=== PATIENT | female | born 1950 | race Caucasian/White ===

== ENCOUNTER 2017-06-18 22:19 | Emergency (ER) | payer MEDICARE, OTHER ==
[~2017-06-18] VITALS: Ht 165.1 cm; Wt 106.6 kg
[2017-06-18 22:54] VITALS: BP 147/83; PULSE 93; RESP 14; TEMP 98.1; O2SAT 96
[2017-06-19 00:05] VITALS: BP 131/63; PULSE 96; RESP 20; O2SAT 99
[2017-06-19] MEDS ORDERED: BUPR150CR PO (00:14)
[2017-06-19] MEDS ORDERED: SITA1TAB2 PO (00:14)
[2017-06-19] MEDS ORDERED: DEXI60CA3 PO (00:14)
[2017-06-19] MEDS ORDERED: METF1000 PO (00:14)
[2017-06-19] MEDS ORDERED: FOLI800T PO (00:14)
[2017-06-19] MEDS ORDERED: ONDANSETRON ODT 4 MG TAB PO ONE (00:30)
[2017-06-19 01:05] VITALS: BP 144/73; PULSE 86; RESP 20; O2SAT 99
--- NOTE | 2017-06-19 01:08 | RADRPT ---
EXAM DATE/TIME: 06/19/2017 00:41 [place] COMPARISON: No previous studies available for comparison. INDICATIONS : Right lower quadrant pain. Evaluate for calculi. ORAL CONTRAST: No oral contrast ingested. RADIATION DOSE: 19.15 CTDIvol (mGy) MEDICAL HISTORY : None SURGICAL HISTORY : Inguinal hernia repair. ENCOUNTER: Initial ACUITY: 1 day PAIN SCALE: 9/10 LOCATION: Right lower quadrant TECHNIQUE: Volumetric scanning of the abdomen and pelvis was performed. Using automated exposure control and ad justment of the mA and/or kV according to patient size, radiation dose was kept as low as reasonably achievable to obtain optimal diagnostic quality images. DICOM format image data is available electro nically for review and comparison. FINDINGS: Right side: No evidence of hydronephrosis. Extrarenal pelvis in the right ureter is mildly dilated down to the u reterovesical junction where there is a 5 mm stone stopped and there is also a nonobstructing [address] one lower pole collecting system. Left side: No calcified stones. No hydronephrosis. The left ureter is normal dimension. Bladder: Smooth margins. No intraluminal calcifications. Other: No calcified gallstones. No dilated loops of small large bowel. No evidence of free fluid. CONCLUSION: 5 mm obstructing stone at the right ureterovesical junction with mild dilation of the right extrarena l pelvis and ureter. There is one additional 5 mm nonobstructing stone lower pole right kidney. Renato Valiente MD on June 19, 2017 at 1:03 Board Certified Radiologist. This report was verified electronically.
--- NOTE | 2017-06-19 01:36 | PD ---
HPI Chief Complaint: Abdominal Pain Time Seen by Provider: 00:29 Travel History International Travel<30 days: No Contact w/Intl Traveler<30days: No Traveled to known affect area: No History of Present Illness HPI Patient came in complaining of right lower quadrant pain, intensity of 8 out of 10, intermittent, radiating up-and-down her right flank, patient currently denies any evidence of hematuria. PFSH Past Medical History Patient Takes Glucophage: Yes Inguinal Hernia: Yes Kidney Stones: Yes Influenza Vaccination: No ?: Not LMP: MENAPAUSAL Past Surgical History Abdominal Surgery: Yes (Hernia) Social History Alcohol Use: No Tobacco Use: No Substance Use: No Allergies-Medications (Allergen,Severity, Reaction): Coded Allergies: Sulfa (Sulfonamide Antibiotics) (Verified Allergy, Severe, RASH, 06/19/17) lactulose (Verified Allergy, Severe, Cramping, 06/19/17) Reported Meds & Prescriptions Reported Meds & Active Scripts Active Reported Folic Acid 0.8 Mg Tab 1 Mg PO DAILY Dexilant (Dexlansoprazole) 60 Mg bp 60 Mg PO DAILY Metformin (Metformin HCl) 1,000 Mg Tab 1,000 Mg PO BIDPC Januvia (Sitagliptin Phosphate) 100 Mg Tab 100 Mg PO DAILY Wellbutrin SR 12 HR (Bupropion HCl) 150 Mg Tab 150 Mg PO Q12HR Review of Systems Except as stated in HPI: all other systems reviewed are Neg General / Constitutional: No: Fever Eyes: No: Visual changes HENT: No: Headaches Cardiovascular: No: Chest Pain or Discomfort Respiratory: No: Shortness of Breath Gastrointestinal: No: Abdominal Pain Genitourinary: Positive: Flank Pain Musculoskeletal: No: Pain Skin: No Rash Neurologic: No: Weakness Psychiatric: No: Depression Endocrine: No: Polydipsia Hematologic/Lymphatic: No: Easy Bruising Physical Exam Narrative GENERAL: SKIN: Warm and dry. HEAD: Atraumatic. Normocephalic. EYES: Pupils equal and round. No scleral icterus. No injection or drainage. ENT: No nasal bleeding or discharge. Mucous membranes pink and moist. NECK: Trachea midline. No JVD. CARDIOVASCULAR: Regular rate and rhythm. RESPIRATORY: No accessory muscle use. Clear to auscultation. Breath sounds equal bilaterally. GASTROINTESTINAL: Abdomen soft, non-tender, nondistended. MUSCULOSKELETAL: Extremities without clubbing, cyanosis, or edema. No obvious deformities. NEUROLOGICAL: Awake and alert. No obvious cranial nerve deficits. Motor grossly within normal limits. Five out of 5 muscle strength in the arms and legs. Normal speech. PSYCHIATRIC: Appropriate mood and affect; insight and judgment normal. Data Data Last Documented VS Vital Signs Date Time Temp Pulse Resp B/P (MAP) Pulse Ox O2 Delivery O2 Flow Rate FiO2 06/19/17 00:05 96 20 131/63 (85) 99 06/18/17 22:[address] Abd/Pel W/O Iv Contrast (06/19/17 00:29) Ondansetron Odt (Zofran Odt) (06/19/17 00:30) Urinalysis - C+S If Indicated (06/19/17 01:36) Labs Laboratory Tests Test 06/19/17 01:40 [facility] Medical Decision Making Medical Screen Exam Complete: Yes Emergency Medical Condition: Yes Medical Record Reviewed: Yes Differential Diagnosis Appendectomy versus kidney stones V PYELO versus UTI Diagnosis Primary Impression: Ureterolithiasis Patient Instructions: General Instructions, Kidney Stones (ED) Scripts Ondansetron Odt (Zofran Odt) 4 Mg Tab 4 MG SL Q6HR Y for Nausea/Vomiting, #15 TAB 0 Refills Prov: Winston Gonsales MD 06/19/17 Ketorolac (Ketorolac) 10 Mg Tab 10 MG PO Q6HR Y for PAIN, #15 TAB 0 Refills Prov: Winston Gonsales MD 06/19/17 Hydrocodone-Acetaminophen ([place]) 5 Mg-325 Mg Tab 1 TAB PO Q4H Y for PAIN, #14 TAB 0 Refills Prov: Winston Gonsales MD 06/19/17 Tamsulosin (Flomax) 0.4 Mg Cap 0.4 MG PO DAILY for Manage Prostate Problems, #5 CAP 0 Refills Prov: Winston Gonsales MD 06/19/17 Disposition: 01 DISCHARGE HOME Condition: Stable Winston Gonsales MD Jun 19, 2017 01:36
[2017-06-19 01:55] LABS: BILIRUBIN, URINE NEG (NEG); BLOOD, URINE LARGE (NEG); GLUCOSE,URINE NEG (NEG); KETONE, URINE NEG (NEG); NITRITE,URINE NEG (NEG); PH, URINE 5.5 (5.0-8.5); URINE LEUKOCYTE ESTERASE NEG (NEG)
[2017-06-19] MEDS ORDERED: KETO10 PO (02:00)
[2017-06-19] MEDS ORDERED: ZOFR4TAB3 SL (02:00)
[2017-06-19] MEDS ORDERED: TAMS5CAP PO (02:00)
[2017-06-19] MEDS ORDERED: NORC5TAB PO (02:00)
[2017-06-19 02:12] VITALS: BP 139/66
[2017-06-19 02:23] LABS: URINE COLOR YELLOW (YELLW/STRAW)
[2017-06-19 02:24] LABS: SQUAMOUS EPITHELIAL CELL URINE 0-5 /hpf (0-5)
[2017-06-19 02:25] LABS: HYALINE CAST, URINE 0-2 /lpf (RARE); MUCUS URINE FEW /lpf (OCC)
[2017-06-19 02:26] LABS: BACTERIA, URINE OCC /hpf
== END 2017-06-19 02:17 | disposition home or self-care (01) ==
LOC: PHED 22:19
DX: N20.1 Calculus of ureter (principal); Z87.442 Personal history of urinary calculi; Z88.2 Allergy status to sulfonamides; Z79.84 Long term (current) use of oral hypoglycemic drugs; Z79.899 Other long term (current) drug therapy
CPT/HCPCS: 74176; 81001